=== PATIENT | male | born 1990 | race Caucasian/White ===

== ENCOUNTER 2018-04-07 14:10 | Outpatient (REF) | payer MEDICARE, MEDICAID, SELFPAY ==
[2018-04-07 21:46] LABS: Abs Immature Grans 0.02 k/cumm (0.0-0.09); Absolute Basophil Count 0.03 k/cumm (0.0-0.2); Absolute Eosinophil Count 0.08 k/cumm (0.0-0.7); Absolute Lymphocyte Count 1.13 k/cumm (1.2-3.4); Absolute Monocyte Count 0.56 k/cumm (0.11-0.7); Absolute Neutrophil Count 4.12 k/cumm (1.2-6.7); Basophils % 0.5; Eosinophils % 1.3; HGB 14.3 g/dL (13.5-17.5); Immature Grans % 0.3; Mean Corp. HGB Concentration 34.9 g/dL (32.0-36.0); Mean Corpuscular Hemoglobin 31.1 pg (27.0-33.0); Mean Corpuscular Volume 89.1 fL (80-95); Mean Platelet Volume 11.2 fL (8.0-11.0); Monocytes % 9.4; Neutrophils % 69.5; Platelet Count 200 x1000/uL (130-400); RBC Distribution Width 12.3 % (11.8-14.1); White Blood Cell Count 5.94 k/cumm (4.4-10.8)
== END 2018-04-07 14:30 ==
LOC: NCHCN 14:10
PROVIDERS: Visit Provider Nurse Practitioner Family
DX: Z86.2 Personal history of diseases of the blood and blood-forming organs and certain disorders involving the immune mechanism (principal); Z00.01 Encounter for general adult medical examination with abnormal findings
CPT/HCPCS: 85025

== ENCOUNTER 2018-11-19 11:51 | Outpatient (REF) | payer MEDICARE, MEDICAID, SELFPAY ==
[2018-11-19 22:34] LABS: Calculated LDL 117; Cholesterol 173 mg/dL (50-200); HDL Cholesterol 42 mg/dL (40-60); Triglyceride 70 mg/dL (30-150)
== END 2018-11-19 12:11 ==
LOC: NCHCN 11:51
PROVIDERS: Visit Provider Registered Nurse
DX: Z79.899 Other long term (current) drug therapy (principal); Z13.6 Encounter for screening for cardiovascular disorders; R69 Illness, unspecified
CPT/HCPCS: 80061; 83721